=== PATIENT | male | born 1990 | race Caucasian/White ===

== ENCOUNTER 2018-11-06 01:55 | Emergency (ER) | payer MEDICAID ==
[~2018-11-06] VITALS: Ht 170.2 cm; Wt 69.5 kg
[2018-11-06] MEDS ORDERED: CLIN-96 PO (02:44)
[2018-11-06 03:07] VITALS: BP 157/90
== END 2018-11-06 03:10 | disposition home or self-care (01) ==
LOC: ER 01:56
DX: L03.314 Cellulitis of groin (principal); F17.200 Nicotine dependence, unspecified, uncomplicated; Z88.8 Allergy status to other drugs, medicaments and biological substances; Z88.2 Allergy status to sulfonamides; Z79.899 Other long term (current) drug therapy
CPT/HCPCS: 99283